=== PATIENT | female | born 1975 | race Native Hawaiian/Other Pacific Islander ===

== ENCOUNTER → 2017-06-12 | Outpatient (CLI) | payer OTHER ==
--- NOTE | 2017-06-12 16:43 | REPMRS ---
Patient History The patient states she had a clinical breast exam in May 2017. Patient had first child at age 31. Family history of breast cancer in sister at age 41 and breast cancer in maternal aunt at age 50. Patient states she has gained at least 10 lbs since last mammogram Digital Mammo Screening Bilat: June 12, 2017 - Exam #: [id number] Bilateral CC and MLO view(s) were taken. Technologist: Deedee Martinez Technologist Prior study comparison: June 10, 2016, bilateral digital mammo screening bilat performed at [facility]. June 04, 2015, bilateral digital mammo screening bilat performed at [facility]. FINDINGS: There are scattered fibroglandular densities. There has been no change in the appearance of the mammogram from the prior studies. There is a mild amount of residual fibroglandular tissue which is fairly symmetric. There is no interval development of dominant mass, architectural distortion, or clustered microcalcification suggestive of malignancy. ASSESSMENT: BI-RADS/ACR category 1 mammogram. Negative. Recommendation Routine screening mammogram in 1 year (for women over age 40). This mammogram was interpreted with the aid of an FDA-approved computer-aided dectection system. Electronically Signed By: Jesus Sood MD 06/12/17 [id number]
== END ==
LOC: M RAD 15:12
PROVIDERS: ATTEND Obstetrics & Gynecology
DX: Z12.4 Encounter for screening for malignant neoplasm of cervix (principal)

== ENCOUNTER → 2018-02-01 | Outpatient (CLI) | payer OTHER ==
[2018-02-01 13:55] LABS: BASO # 0.1 10^3/uL (0.0-0.2); BASO % 0.9 % (0.0-1.0); EOS # 0.1 10^3/uL (0.0-0.50); EOS % 1.2 % (0.0-3.0); HEMATOCRIT 43.3 % (36.0-47.0); HEMOGLOBIN 14.3 g/dl (12.0-16.0); IMMATURE GRANULOCYTE % 0.3 % (0-3.0); LYMPH # 2.9 10^3/uL (1.5-4.5); LYMPH % 44.4 % (24.0-44.0); MEAN CORPUSCULAR VOLUME 78.6 fl (80.0-96.0); MONO # 0.3 10^3/uL (0.0-0.8); MONO % 4.1 % (0.0-5.0); NEUTROPHILS # 3.2 10^3/uL (1.8-7.7); NEUTROPHILS % 49.1 % (36.0-66.0); PLATELET COUNT, AUTOMATED 279 10^3/uL (150-450); RED BLOOD COUNT 5.51 10^6/uL (4.00-5.40); RED CELL DISTRIBUTION WIDTH 13.1 % (11.5-14.5); WHITE BLOOD COUNT 6.5 10^3/uL (4.0-10.0)
[2018-02-01 14:29] LABS: FREE T4 1.17 NG/DL (0.76-1.46)
== END ==
LOC: M LAB 12:54
DX: A68.9 Relapsing fever, unspecified (principal)
CPT/HCPCS: 84443

== ENCOUNTER → 2018-06-16 | Outpatient (CLI) | payer OTHER | LOC: M RAD 12:35 | DX: Z12.31 Encounter for screening mammogram for malignant neoplasm of breast (principal) | CPT/HCPCS: 77067 ==

== ENCOUNTER → 2019-06-17 | Outpatient (CLI) | payer OTHER ==
--- NOTE | 2019-06-17 15:32 | REPMRS ---
Patient History The patient states she had a clinical breast exam in April 2019. Family history of breast cancer at age 41 in sister, breast cancer at age 50 in maternal aunt. 3D TOMOSYNTHESIS WAS PERFORMED. The Phani Fernandes lifetime risk for breast cancer is 31.8%. Digital Mammo Screening Bilat: June 17, 2019 - Exam #: [id number] Bilateral CC and MLO view(s) were taken. Technologist: Amy Kwong, Technologist Prior study comparison: June 16, 2018, bilateral digital mammo screening bilat performed at [facility]. June 12, 2017, bilateral digital mammo screening bilat performed at [facility]. FINDINGS: The breast tissue is heterogeneously dense. This may lower the sensitivity of mammography. There has been no change in the appearance of the mammogram from the prior studies. There is a moderate amount of residual fibroglandular tissue which is fairly symmetric. There is no interval development of dominant mass, areas of architectural distortion, or clustered microcalcification typical of malignancy. Assessment: BI-RADS/ACR category 1 mammogram. Negative Mammogram. Recommendation Routine screening mammogram in 1 year (for women over age 40). This mammogram was interpreted with the aid of an FDA-approved computer-aided dectection system. Electronically Signed By: Jesus Sood MD 06/17/19 [id number]
== END ==
LOC: M RAD 14:47
PROVIDERS: ATTEND Obstetrics & Gynecology
DX: Z12.31 Encounter for screening mammogram for malignant neoplasm of breast (principal); Z80.3 Family history of malignant neoplasm of breast

== ENCOUNTER → 2019-07-08 | Outpatient (CLI) | payer OTHER ==
[~2019-07-08] MED LIST: PROHANCE 279.3MG/ML 15ML VIAL (A9576) As Ordered ONE
--- NOTE | 2019-07-11 10:36 | REP ---
Bilateral breast MRI study without and with IV gadolinium: History: History of intermittent mastitis of the left breast. No significant finding on exam. History of test dense breast parenchyma. Positive family history breast cancer in a sister at age 41. BRCA negative. Comparison mammography June 17, 2019. Technique: 3 Maryjo MRI imaging was performed with a dedicated breast coil. Axial, coronal, and sagittal T1 and T2-weighted scans were obtained with and without fat saturation in the usual fashion. The study includes dynamically acquired post gadolinium enhanced imaging subtraction imaging. Maximal intensity projection and multiplanar re-formation imaging is included as well. The study was interpreted with the aid of [employer], an FDA approved computer-aided detection (CAD) software program, on a dedicated breast MRI work station. The gadolinium enhancement dose is 14 ml of intravenous ProHance. Findings: There are scattered micro metallic field susceptibility artifacts in this patient who is status post bilateral breast reduction. There is a mild pattern of fibroglandular tissue bilaterally. There is minimal background parenchymal enhancement. There is no evidence of axillary lymphadenopathy. No significant breast cystic change is seen on T2-weighted scans. High-resolution T1 and T2-weighted pre and postcontrast images show no suspicious morphologic abnormality in either breast. Subtraction images are unremarkable. No area of enhancement washout is seen in either breast on dynamic postcontrast images. Impression: BIRADS category II benign findings. No suspicious abnormality. The patient's Tyrer Cuzick risk assessment score of 31.8%. Repeat screening breast MRI scanning is recommended in 1 year. Electronically Signed by Pnio Chin MD 07/11/2019 04:46 P
== END ==
LOC: M RAD 16:28
PROVIDERS: ATTEND Obstetrics & Gynecology
DX: R93.89 Abnormal findings on diagnostic imaging of other specified body structures (principal); Z80.3 Family history of malignant neoplasm of breast
CPT/HCPCS: A9576; C8908

== ENCOUNTER → 2020-06-18 | Outpatient (CLI) | payer OTHER ==
--- NOTE | 2020-06-18 13:48 | REPMRS ---
Patient History The patient states she had a clinical breast exam in May 2020.Family history of breast cancer at age 41 in sister, breast cancer at age 50 in maternal aunt. Digital Woman Screen Mammo: June 18, 2020 - Exam #: [id number] Bilateral CC and MLO view(s) were taken. Technologist: Jenny Gallegos, Technologist Prior study comparison: June 17, 2019, bilateral digital mammo screening bilat, performed at [facility]. June 16, 2018, bilateral digital mammo screening bilat, performed at [facility]. June 12, 2017, bilateral digital mammo screening bilat, performed at [facility]. FINDINGS: There are scattered fibroglandular densities. The Volpara volumetric breast density category is:B. There has been no change in the appearance of the mammogram from the prior studies. There is a mild amount of scattered fibroglandular density which is fairly symmetric. There is no interval development of dominant mass, architectural distortion, or grouped microcalcification suggestive of malignancy. 3-D tomosynthesis shows no additional findings. Assessment: BI-RADS/ACR category 1 mammogram. Negative Mammogram. Recommendation Breast MRI of both breasts in 6 months. Routine screening mammogram of both breasts in 1 year (for women over age 40). This patient's Lifetime Breast Cancer Risk is estimated at 31.5 %. Annual screening Breast MRI scanniing is recommended for patient's whose lifetime risk assessment is over 20%. This mammogram was interpreted with the aid of an FDA-approved computer-aided dectection system. Electronically Signed By: Corona Chin MD 06/18/20 [id number]
== END ==
LOC: M WHC 13:00
PROVIDERS: ATTEND Obstetrics & Gynecology
DX: Z12.31 Encounter for screening mammogram for malignant neoplasm of breast (principal); Z80.3 Family history of malignant neoplasm of breast

== ENCOUNTER → 2021-06-24 | Outpatient (CLI) | payer OTHER ==
--- NOTE | 2021-06-24 13:57 | REP ---
INDICATION: Z12.31 SCREENING MAMMO. COMPARISON: Multiple TECHNIQUE: Digital screening mammography was carried out bilaterally in the CC and MLO projections using both 2D and 3D modalities and compared to the prior exams. By history, the patient has no complaints of a palpable breast abnormality or other significant breast complaints. FINDINGS: The breasts are unchanged in size and shape. Once again, scattered dense heterogenous fibroglandular elements are seen bilaterally in a stable appearing pattern. There are no masses. There is no internal architectural distortion. Stable benign appearing calcifications are again seen scattered about both breasts. Some of these are in groups but no in group is more suspicious than any other. There is no skin thickening or nipple retraction. The Volpara volumetric breast density pattern is b. IMPRESSION: BIRADS/ACR category 0 mammogram. Secondary to the patient's high Tyrer Atglen score of 31.1% bilateral baseline breast MRI is recommended at this time. This mammogram was interpreted with the aid of an FDA-approved computer-aided detection system. The patient states she had a clinical breast exam in May 2021. The patient letter being requested is M0. RECOMMENDATION: As above <Electronically signed by Live Rockwell > 06/24/21 [id number]
== END ==
LOC: M WHC 12:38
PROVIDERS: ATTEND Obstetrics & Gynecology
DX: Z12.31 Encounter for screening mammogram for malignant neoplasm of breast (principal)

== ENCOUNTER → 2021-08-29 | Outpatient (CLI) | payer OTHER ==
[~2021-08-29] MED LIST changes: -PROHANCE 279.3MG/ML 15ML VIAL (A9576) As Ordered ONE; +PROHANCE 279.3MG/ML 15ML VIAL As Ordered ONE
--- NOTE | 2021-08-29 14:59 | REP ---
INDICATION: R92.2 INCLUSIVE MAMMO Z13.71 SCREENING. COMPARISON: Comparison mammography June 24, 2021. TECHNIQUE: Three Maryjo MRI imaging was performed with a dedicated breast coil. Axial, coronal, and sagittal T1 and T2 weighted scans were obtained with and without fat saturation in the usual fashion. The study includes dynamically acquired post gadolinium-enhanced imaging with image subtraction. Maximum intensity projection and multi planar reformation imaging is included as well. This study is interpreted with the aid of [employer], an FDA approved computer aided detection (CAD) software program, on a dedicated breast MRI workstation. The gadolinium enhancement dose is 14 mL of intravenous ProHance. FINDINGS: There is a moderate amount of fibroglandular tissue bilaterally corresponding with the mammographic pattern. There is mild background parenchymal enhancement. There is no evidence of axillary lymphadenopathy or significant breast cystic change. High-resolution pre and post-contrast T1 and T2 weighted scans show no suspicious morphologic abnormality in either breast. Dynamically acquired sequential postcontrast images show no suspicious area of enhancement and washout kinetics in either breast to suggest malignancy. Subtraction images show no additional abnormality. There are areas of micrometallic artifact in this patient with status post bilateral breast reduction. IMPRESSION: BI-RADS category 2 benign bilateral breast MRI findings. Patients whose estimated lifetime breast cancer risk assessment is greater than 20% merit annual screening breast MRI scanning in addition to annual screening mammography. Optimally, these can be accomplished at 6 months alternating intervals. <Electronically signed by Corona Chin > 08/29/21 [id number]
== END ==
LOC: M RAD 12:40
PROVIDERS: ATTEND Obstetrics & Gynecology
DX: R92.2 Inconclusive mammogram (principal)
CPT/HCPCS: 77049; A9576

== ENCOUNTER → 2022-06-30 | Outpatient (CLI) | payer BC | LOC: M WHC 14:33 | PROVIDERS: ATTEND Obstetrics & Gynecology | DX: Z12.31 Encounter for screening mammogram for malignant neoplasm of breast (principal) ==

== ENCOUNTER → 2022-12-02 | Outpatient (REF) | payer BC | LOC: M SFHCWAGY 17:27 | PROVIDERS: ATTEND Obstetrics & Gynecology | DX: Z12.4 Encounter for screening for malignant neoplasm of cervix (principal) ==

== ENCOUNTER → 2022-12-26 | Outpatient (CLI) | payer BC | LOC: M RAD 15:35 | PROVIDERS: ATTEND Obstetrics & Gynecology | DX: N85.2 Hypertrophy of uterus (principal); N83.201 Unspecified ovarian cyst, right side ==

== ENCOUNTER → 2023-04-10 | Outpatient (REF) | payer BC | LOC: M SFHCWAGY 10:09 | PROVIDERS: ATTEND Obstetrics & Gynecology | DX: N39.9 Disorder of urinary system, unspecified (principal) ==

== ENCOUNTER → 2023-07-10 | Outpatient (CLI) | payer BC | LOC: M WHC 06:37 | PROVIDERS: ATTEND Family Medicine | DX: Z12.31 Encounter for screening mammogram for malignant neoplasm of breast (principal); E66.9 Obesity, unspecified; Z87.442 Personal history of urinary calculi; I34.1 Nonrheumatic mitral (valve) prolapse; R94.5 Abnormal results of liver function studies; R30.0 Dysuria; N83.291 Other ovarian cyst, right side; R93.41 Abnormal radiologic findings on diagnostic imaging of renal pelvis, ureter, or bladder ==

== ENCOUNTER → 2023-10-14 | Outpatient (CLI) | payer BC | LOC: M RAD 14:36 | PROVIDERS: ATTEND Family Medicine | DX: Z12.31 Encounter for screening mammogram for malignant neoplasm of breast (principal) | CPT/HCPCS: 77049; A9576 ==

== ENCOUNTER → 2023-12-18 | Outpatient (CLI) | payer BC ==
[2023-12-18 11:21] LABS: HEMATOCRIT 41.8 % (36.0-47.0); HEMOGLOBIN 13.8 g/dl (12.0-15.5); MEAN CORPUSCULAR HEMOGLOBIN 28.5 pg (27.0-33.0); MEAN CORPUSCULAR VOLUME 86.4 fl (80.0-96.0); PLATELET COUNT, AUTOMATED 240 10^3/uL (150-450); RED BLOOD COUNT 4.84 10^6/uL (4.00-5.40); WHITE BLOOD COUNT 6.9 10^3/uL (4.0-10.0)
== END ==
LOC: M PLALAB 08:07
PROVIDERS: ATTEND Obstetrics & Gynecology
DX: Z12.4 Encounter for screening for malignant neoplasm of cervix (principal); N93.9 Abnormal uterine and vaginal bleeding, unspecified

== ENCOUNTER → 2024-07-12 | Outpatient (CLI) | payer BC | LOC: M WHC 15:17 | PROVIDERS: ATTEND Obstetrics & Gynecology | DX: Z12.31 Encounter for screening mammogram for malignant neoplasm of breast (principal) ==

== ENCOUNTER → 2025-04-10 | Outpatient (REF) | payer BC ==
[2025-04-12 16:52] LABS: HPV APTIMA Not Detected (Not Detected)
== END ==
LOC: M SFHCWAGY 12:55
PROVIDERS: ATTEND Obstetrics & Gynecology
DX: Z12.4 Encounter for screening for malignant neoplasm of cervix (principal)

== ENCOUNTER → 2025-07-17 | Outpatient (CLI) | payer BC | LOC: M WHC 10:12 | PROVIDERS: ATTEND Obstetrics & Gynecology | DX: Z12.31 Encounter for screening mammogram for malignant neoplasm of breast (principal); R92.313 Mammographic fatty tissue density, bilateral breasts ==

== ENCOUNTER → 2025-07-17 | Outpatient (REF) | payer BC | LOC: M SFHCWAGY 13:09 | PROVIDERS: ATTEND Obstetrics & Gynecology | DX: R87.610 Atypical squamous cells of undetermined significance on cytologic smear of cervix (ASC-US) (principal) ==